=== PATIENT | female | born 1965 | race Caucasian/White ===

== ENCOUNTER 2021-06-12 13:32 | Emergency (ER) | payer SELFPAY ==
[~2021-06-12] VITALS: Ht 172.7 cm; Wt 102.6 kg
--- NOTE | 2021-06-12 14:35 | PHYS DOC ---
Past Medical History Past Medical History: Anxiety, High Cholesterol, Hypertension General Adult EDM: Chief Complaint: DIZZY/LIGHT HEADED HPI: HPI: Patient is a 56 year old female with history of anxiety, hypertension, high cholesterol, presenting to the ED today with multiple complaints. Patient states she has had generalized weakness, symptoms of been going on for weeks. Patient states yesterday she developed some slurred speech and dropped a bag of chips but she was able to pick it up and eat the chips as well. She states she does not remember if the slurred speech began after she took her anxiety medicines. She states right now her anxiety is off the roof because she is worried about her symptoms. Denies any fever, coughing, congestion, reports chronic headaches. She reports being on several medications including trazodone, Klonopin, hydroxyzine, which she thinks she took last night Review of Systems: Review of Systems: Constitutional: Denies fever or chills. [] Eyes: Denies change in visual acuity. [] HENT: Denies nasal congestion or sore throat. [] Respiratory: Denies cough or shortness of breath. [] Cardiovascular: Denies chest pain or edema. [] GI: Denies abdominal pain, nausea, vomiting, bloody stools or diarrhea. [] : Denies dysuria. [] Musculoskeletal: Denies back pain or joint pain. [] Integument: Denies rash. [] Neurologic: Reports chronic headaches, with generalized weakness, reports slurred speech Endocrine: Denies polyuria or polydipsia. [] Lymphatic: Denies swollen glands. [] Psychiatric: Reports anxiety Heart Score: C/O Chest Pain: N/A Risk Factors: Risk Factors: DM, Current or recent (<one month) smoker, HTN, HLP, family his tory of CAD, obesity. Risk Scores: Score 0 - 3: 2.5% MACE over next 6 weeks - Discharge Home Score 4 - 6: 20.3% MACE over next 6 weeks - Admit for Clinical Observation Score 7 - 10: 72.7% MACE over next 6 weeks - Early Invasive Strategies Physical Exam: PE: Constitutional: Well developed, well nourished, no acute distress, non-toxic appearance. [] HENT: Normocephalic, atraumatic, bilateral external ears normal, oropharynx moist, no oral exudates, nose normal. [] Eyes: PERRLA, EOMI, conjunctiva normal, no discharge. [] Neck: Normal range of motion, no tenderness, supple, no stridor. [] Cardiovascular:Heart rate regular rhythm, no murmur [] Lungs & Thorax: Bilateral breath sounds clear to auscultation [] Abdomen: Bowel sounds normal, soft, no tenderness, no masses, no pulsatile masses. [] Skin: Warm, dry, no erythema, no rash. [] Back: No tenderness, no CVA tenderness. [] Extremities: No tenderness, no cyanosis, no clubbing, ROM intact, no edema. [] Neurologic: Alert and oriented X 3, normal motor function, normal sensory function, no focal deficits noted. Cranial nerves II through XII intact Psychologic: Affect normal, judgement normal, mood normal. [] EKG: EK interpreted by Dr. Barajas sinus tachycardia heart rate 110 no STEMI [address] Barajas sinus tachycardia heart rate 110 no STEMI Radiology/Procedures: Radiology/Procedures: []PROCEDURE: CT HEAD WO CONTRAST CT HEAD/BRAIN WO History: Reason: weakness / Spl. Instructions: / History: Comparison: None. Technique: Noncontrast CT imaging was performed of the head. Exposure: One or more of the following individualized dose reduction techniques were utilized for this examination: 1. Automated exposure control 2. Adjustment of the mA and/or kV according to patient size 3. Use of iterative reconstruction technique. Findings: No intracranial hemorrhage. No mass effect. No hydrocephalus. Imaged orbits are unremarkable. Secretions within the right sphenoid sinus. Mastoid air cells are clear. No acute calvarial fracture. Impression: 1. No acute intracranial abnormality. Electronically signed by: Ashu Upton DO (06/12/2021 2:58 PM) [id number] DICTATED and SIGNED BY: ASHU UPTON DO DATE: 06/12/21 [id number] PROCEDURE: PORTABLE CHEST 1V XR CHEST 1V History: Weakness Comparison: None. Technique: Portable AP radiograph of the chest. Findings: The lungs are adequately inflated. There is focal opacity in the left lower lobe adjacent to the left heart border. No pleural effusion or pneumothorax. Cardiomediastinal silhouette and pulmonary vasculature are within normal limits. Osseous structures and soft tissues are unremarkable. Impression: 1. Focal nodular opacity left lower lobe and left heart border may represent focal consolidation in the appropriate clinical setting. Alternatively this may represent lung nodule or artifact of mediastinal fat. Recommend repeat radiographs in 6-8 weeks to evaluate for resolution. Electronically signed by: Sonu Ovalle MD (06/12/2021 3:19 PM) [id number] DICTATED and SIGNED BY: SONU OVALLE MD DATE: 06/12/21 [id number] 0 Course & Med Decision Making: Course & Med Decision Making Pertinent Labs and Imaging studies reviewed. (See chart for details) This is a 56-year-old female patient presented to the ED today complaining of generalized weakness, symptoms of been going on for weeks. Also complaining of slurred speech yesterday. She reports being on several medications including trazodone, Klonopin, hydroxyzine, which she thinks she took last night Stroke scale is negative. CT of the head is negative, chest x-ray noted for focal nodular opacity left lower lobe and left heart border may represent focal consolidation in the appropriate clinical setting. Alternatively this may represent lung nodule or artifact of mediastinal fat. Recommend repeat radiographs in 6-8 weeks to evaluate for resolution. CBC, CMP, troponin, EKG, negative for any acute findings. UA positive for UTI. UDS noted for marijuana use Patient was given IV fluids, Rocephin IV in the ED. After lengthy stay in the ED she is awake she is alert she is oriented has no slurred speech. PAT consulted considering for pain. Camila talked to her D/c on Augmentin. F/u with PCP next week Ingrid Disclaimer: Ingrid Disclaimer: This electronic medical record was generated, in whole or in part, using a voice recognition dictation system. NIHSS Stroke Scale NIH Stroke Scale: NIH Stroke Scale Response (Comments) Value Level of Consciousness: 0 Alert/Responsive 0 LOC Questions: 0 Answers both correctly 0 LOC Commands: 0 Performs both tasks 0 Best Gaze: 0 Normal 0 Visual: 0 No visual loss 0 Facial Palsy: 0 Normal, symmetrical 0 Motor - Left Arm 0 No drift 0 Motor - Right Arm 0 No drift 0 Motor - Left Leg 0 No drift 0 Motor: Right Leg 0 No drift 0 Limb Ataxia: 0 Absent 0 Best Language: 0 Normal 0 Dysathria: 0 Normal 0 Extinction and Inattention: 0 Normal 0 Total 0 Departure Departure Impression: Primary Impression: Weakness Additional Impressions: UTI (urinary tract infection) Qualified Codes: N39.0 - Urinary tract infection, site not specified Marijuana use Disposition: HOME / SELF CARE / HOMELESS Condition: STABLE Referrals: NO PCP (PCP) follow up in one week Patient Instructions: Urinary Tract Infection, Weakness, [id number] Additional Instructions: You were evaluated in the emergency room and noted to have urinary tract infection. Please take the prescribed antibiotics until completed. Follow-up with your doctor in the next 3 to 7 days. Come back to the ED at any point symptoms worsen. Scripts Amoxicillin/Potassium Clav (AUGMENTIN 875-125 TABLET) 1 Each Tablet 1 TAB PO BID for 7 Days, #14 TAB 0 Refills Prov: DELMA TAIPA APRN 06/12/21 DELMA TAPIA APRN Jun 12, 2021 14:35
[2021-06-12 14:43] LABS: BASO % 1 % (0-3); EOS % 1 % (0-3); HEMATOCRIT 38.5 % (36.0-47.0); HEMOGLOBIN 12.8 g/dL (12.0-15.5); LYMPH # 1.1 x10^3/uL (1.0-4.8); LYMPH % 18 % (24-48); MEAN CORPUSCULAR HEMOGLOBIN 27 pg (25-35); MEAN CORPUSCULAR HGB CONC 33 g/dL (31-37); MEAN CORPUSCULAR VOLUME 81 fL (79-100); MONO # 0.5 x10^3/uL (0.0-1.1); MONO % 8 % (0-9); NEUT # 4.3 x10^3/uL (1.8-7.7); NEUT % 73 % (31-73); PLATELET COUNT 199 x10^3/uL (140-400); RED BLOOD COUNT 4.77 x10^6/uL (3.50-5.40); RED CELL DISTRIBUTION WIDTH 13.6 % (11.5-14.5); WHITE BLOOD COUNT 5.9 x10^3/uL (4.0-11.0)
[2021-06-12 14:52] LABS: PROTHROMBIN TIME PATIENT 13.4 SEC (11.7-14.0)
--- NOTE | 2021-06-12 15:01 | RAD ---
CT HEAD/BRAIN WO History: Reason: weakness / Spl. Instructions: / History: Comparison: None. Technique: Noncontrast CT imaging was performed of the head. Exposure: One or more of the following individualized dose reduction techniques were utilized for thi s examination: 1. Automated exposure control 2. Adjustment of the mA and/or kV according to patient size 3. Use of iterative reconstruction technique. Findings: No intracranial hemorrhage. No mass effect. No hydrocephalus. Imaged orbits are unremarkable. Secretions within the right sphenoid sinus. Mastoid air cells are catrachita ar. No acute calvarial fracture. Impression: 1. No acute intracranial abnormality. Electronically signed by: Ashu Upton DO (06/12/2021 2:58 PM) [id number]
[2021-06-12 15:03] LABS: CALCIUM 7.9 mg/dL (8.5-10.1); CREATININE 0.9 mg/dL (0.6-1.0); GFR 64.3; POTASSIUM 3.9 mmol/L (3.5-5.1)
[2021-06-12 15:08] LABS: ALBUMIN 3.1 g/dL (3.4-5.0); TOTAL BILIRUBIN 1.5 mg/dL (0.2-1.0); TOTAL PROTEIN 6.3 g/dL (6.4-8.2)
--- NOTE | 2021-06-12 15:21 | RAD ---
XR CHEST 1V History: Weakness Comparison: None. Technique: Portable AP radiograph of the chest. Findings: The lungs are adequately inflated. There is focal opacity in the left lower lobe adjacent to the left heart border. No pleural effusion or pneumothorax. Cardiomediastinal silhouette and pulmonary vascul ature are within normal limits. Osseous structures and soft tissues are unremarkable. Impression: 1. Focal nodular opacity left lower lobe and left heart border may represent focal consolidation in the appropriate clinical setting. Alternatively this may represent lung nodule or artifact of mediast inal fat. Recommend repeat radiographs in 6-8 weeks to evaluate for resolution. Electronically signed by: Sonu Valenzuela MD (06/12/2021 3:19 PM) [id number]
[2021-06-12 15:37] LABS: BILIRUBIN,URINE NEGATIVE (NEG); CLARITY,URINE CLEAR; COLOR,URINE YELLOW; NITRITE,URINE POSITIVE (NEG); PH,URINE 6.5 (<5.0-8.0); PROTEIN,URINE NEGATIVE (NEG-TRACE)
[2021-06-12 15:45] LABS: BARBITURATES NEG (NEG); BENZODIAZEPINES NEG (NEG); CANNABINOIDS POS (NEG); COCAINE NEG (NEG); METHADONE NEG (NEG); OPIATES NEG (NEG); PHENCYCLIDINE NEG (NEG)
[2021-06-12 15:50] LABS: BACTERIA,URINE MANY /HPF (0-FEW)
[2021-06-12 15:51] LABS: AMPHETAMINE/METHAMPHETAMINE NEG (NEG); RBC,URINE 0 /HPF (0-2)
[2021-06-12] MEDS ORDERED: cefTRIAXone IV Push 1 GM VIAL. IVP ONE (17:15)
[2021-06-12] MEDS ORDERED: AMOX1TAB61 PO (19:43)
[2021-06-12 19:58] VITALS: BP 155/92
--- NOTE | 2021-06-13 07:47 | EKG ---
[facility] [address] [place] [address] Test Date: 2021-06-12 Test Time: 14:05:35 Pat Name: ONEL ZAMORA Department: Room: Gender: F Generation Technologist: ; : 1965 Requested By: DELMA TAPIA Order Number: [id number] Reading MD: Marcelo Bustamante MD Measurements Intervals [place] Rate: 110 P: -36 ND: 80 QRS: 69 QRSD: 76 T: 74 QT: 330 QTc: 452 Interpretive Statements SINUS TACHYCARDIA Electronically Signed On 06-13-2021 20:47:23 SERVICE DESK SPECIALIST by Marcelo Bustamante MD
--- NOTE | 2021-06-13 07:47 | EKG ---
[facility] [address] [place] [address] Test Date: 2021-06-12 Test Time: 15:01:01 Pat Name: ONEL ZAMORA Department: Room: Gender: F Nuclear Security Officer: : 1965 Requested By: DELMA TAPIA Order Number: [id number] Reading MD: Marcelo Bustamante MD Measurements Intervals [place] Rate: 107 P: -76 DE: 80 QRS: 79 QRSD: 74 T: 116 QT: 326 QTc: 435 Interpretive Statements SR NON-SPECIFIC ST/T CHANGES Electronically Signed On 06-13-2021 20:47:02 AGRICULTURE SCIENCE TEACHER by Marcelo Bustamante MD
== END 2021-06-12 20:02 | disposition home or self-care (01) ==
LOC: ER 13:32
DX: N39.0 Urinary tract infection, site not specified (principal); R53.1 Weakness; F12.90 Cannabis use, unspecified, uncomplicated; F41.9 Anxiety disorder, unspecified; E78.00 Pure hypercholesterolemia, unspecified; I10 Essential (primary) hypertension
CPT/HCPCS: 36415; 70450; 71045; 80053; 80307; 81001; 83735; 83880; 84443; 84484; 85025; 85610; 85730; 87086; 87186; 93005; 96374; 99285; J0696